=== PATIENT | male | born 1945 | race Caucasian/White ===

== ENCOUNTER 2017-11-30 07:48 | Day surgery (SDC) | payer MEDICARE ==
[2017-11-30] MEDS ORDERED: NS 500 ML IV 500 ML IV ONE (08:14)
[2017-11-30] MEDS ORDERED: TETRACAINE 0.5% OPHTH 1 DOSE AFFEYE ONE ×2 (08:30→10:12)
[2017-11-30] MEDS ORDERED: VIGAMOX 0.5% OPHTH 1 DOSE AFFEYE ONE ×4 (08:31→10:23)
[2017-11-30] MEDS ORDERED: PROLENSA OPHTH 1 DOSE AFFEYE ONE (08:42)
[2017-11-30] MEDS ORDERED: ALPHAGAN-P OPHTH 1 DOSE AFFEYE ONE (08:43)
[2017-11-30] MEDS ORDERED: CYCLOGYL 1% OPHTH 1 DOSE OP ONE ×3 (08:44→08:46)
[2017-11-30] MEDS ORDERED: AK-DILATE 2.5% OPHTH 1 DOSE OP ONE ×3 (08:44→08:46)
[2017-11-30] MEDS ORDERED: MYDRIACIL OPHTH 1 DOSE AFFEYE ONE ×3 (08:44→08:46)
[2017-11-30] MEDS ORDERED: BETADINE OPHTH SOLN 5% EACHEYE ONE (10:12)
[2017-11-30] MEDS ORDERED: DUOVISC IO ONE ×2 (10:29→10:39)
[2017-11-30] MEDS ORDERED: ADRENALINE CHL INJ IJ ONE ×2 (10:29→10:39)
[2017-11-30] MEDS ORDERED: BSS OPHTH (PLAIN) 500 ML with VANCOMYCIN HCL 500 MG VIAL 25 MG, ADRENALINE CHL INJ 1 MG IR ONE ×3 (10:29)
[2017-11-30] MEDS ORDERED: XYLOCAINE-MPF 1% IJ ONE ×2 (10:29→10:39)
[2017-11-30 14:25] VITALS: BP 196/68
[2017-11-30] MEDS ORDERED: DIPRIVAN VIAL ONE (15:58)
== END 2017-11-30 11:05 | disposition home or self-care (01) ==
LOC: SURG1 07:48
PROVIDERS: ATTEND Ophthalmology
PROC: 08DJ3ZZ Extraction of Right Lens, Percutaneous Approach (ICD-10-PCS; principal; 2017-11-30 09:45)
PROC: 08RJ3JZ Replacement of Right Lens with Synthetic Substitute, Percutaneous Approach (ICD-10-PCS; principal; 2017-11-30 09:45)
DX: H25.11 Age-related nuclear cataract, right eye (principal); H25.011 Cortical age-related cataract, right eye; H52.221 Regular astigmatism, right eye
CPT/HCPCS: 99100; A9270; A4217; J0170; J3370; J3490

== ENCOUNTER 2017-12-21 07:54 | Day surgery (SDC) | payer MEDICARE ==
[2017-12-21] MEDS ORDERED: TETRACAINE 0.5% OPHTH 1 DOSE AFFEYE ONE ×4 (08:45→12:20)
[2017-12-21] MEDS ORDERED: NS 500 ML IV 500 ML IV ONE (08:49)
[2017-12-21] MEDS ORDERED: VIGAMOX 0.5% OPHTH 1 DOSE AFFEYE ONE ×6 (08:50→12:38)
[2017-12-21] MEDS ORDERED: PROLENSA OPHTH 1 DOSE AFFEYE ONE (09:01)
[2017-12-21] MEDS ORDERED: ALPHAGAN-P OPHTH 1 DOSE AFFEYE ONE (09:03)
[2017-12-21] MEDS ORDERED: AK-DILATE 2.5% OPHTH 1 DOSE OP ONE ×3 (09:05→09:07)
[2017-12-21] MEDS ORDERED: CYCLOGYL 1% OPHTH 1 DOSE OP ONE ×3 (09:05→09:07)
[2017-12-21] MEDS ORDERED: MYDRIACIL OPHTH 1 DOSE AFFEYE ONE ×3 (09:05→09:07)
[2017-12-21] MEDS ORDERED: BETADINE OPHTH SOLN 5% EACHEYE ONE ×2 (11:30→12:21)
[2017-12-21] MEDS ORDERED: ADRENALINE CHL INJ IJ ONE ×2 (11:39→12:27)
[2017-12-21] MEDS ORDERED: DUOVISC IO ONE ×2 (11:39→12:27)
[2017-12-21] MEDS ORDERED: XYLOCAINE-MPF 1% IJ ONE ×2 (11:39→12:27)
[2017-12-21] MEDS ORDERED: BSS OPHTH (PLAIN) 500 ML with VANCOMYCIN HCL 500 MG VIAL 25 MG, ADRENALINE CHL INJ 1 MG IR ONE ×6 (11:40→12:27)
[2017-12-21 12:54] VITALS: BP 167/84
[2017-12-21] MEDS ORDERED: DIPRIVAN VIAL ONE (14:01)
== END 2017-12-21 12:59 | disposition home or self-care (01) ==
LOC: SURG1 07:54
PROVIDERS: ATTEND Ophthalmology
PROC: 08DK3ZZ Extraction of Left Lens, Percutaneous Approach (ICD-10-PCS; principal; 2017-12-21 14:30)
PROC: 08RK3JZ Replacement of Left Lens with Synthetic Substitute, Percutaneous Approach (ICD-10-PCS; principal; 2017-12-21 14:30)
DX: H25.12 Age-related nuclear cataract, left eye (principal); H25.012 Cortical age-related cataract, left eye; H52.222 Regular astigmatism, left eye
CPT/HCPCS: 99100; A9270; A4217; J0170; J3370; J3490